=== PATIENT | female | born 1985 | race American Indian/Alaskan Native ===

== ENCOUNTER 2020-09-10 07:06 | Emergency (ER) | payer OTHER ==
[2020-09-10 07:25] VITALS: BP 108/66
[2020-09-10] MEDS ORDERED: DIPHtheria,PERTUSSIS(ACELL),TETANUS VACCINE/PF 0.5 ML VIAL IM ONE (07:56)
--- NOTE | 2020-09-10 08:00 | Emergency Department Report ---
ED Laceration HPI - HPI Chief Complaint: Laceration/Recheck/Suture Stated Complaint: RT THUMB LACERATION Time Seen by Provider: 09/10/20 07:55 Occurred When: Yesterday Location: Upper Extremity Tetanus Status: Not up to Date (Right thumb) Laceration Symptoms: Yes Pain, No Foreign Body Sensation, No Numbness, No Weakness Other History: The patient was evaluated in the emergency department for symptoms described in the history of present illness. He/she was evaluated in the context of the global COVID-19 pandemic, which necessitated consideration that the patient might be at risk for infection with the virus that causes COVID-19. Institutional protocols and algorithms that pertain to the evaluation of patients at risk for COVID-19 are in a state of rapid change based on information released by regulatory bodies including the CDC and federal and state organizations. These policies and algorithms were followed during the patient's care in the emergency department. Please note that these policies, procedures and recommendations changed on a rapid basis. 34-year-old - [place] female presents to the emergency room for cutting her thumb last night approximately 9:00 PM. Patient states that she cut it on a glass table. Patient reports that the bleeding was controlled until she pulled off the bandage this morning. Patient reports she is not up-to-date on her tetanus. ED Review of Systems ROS: Stated complaint: RT THUMB LACERATION Other details as noted in HPI Comment: All other systems reviewed and negative ED Past Medical Hx - Past Medical History Previous Medical History?: Yes Additional medical history: states that she was DX with depression, - Surgical History Past Surgical History?: Yes Additional Surgical History: , D and C X1 - Social History Smoking Status: Current Every Day Smoker Substance Use Type: None Laceration Physical Exam - Exam General: Vital signs noted. No distress. Alert and acting appropriately. Wound Length (cm): 1 Laceration Location: Upper Extremity (right thumb) Laceration Exam: Yes Normal Distal CMS, No Foreign Body, No Exposed Tendon, Vessel, or Nerve, No Tendon Injury ED Course Vital Signs 09/10/20 09/10/20 07:11 07:15 Temperature 98.4 F 98.4 F Pulse Rate 65 65 Respiratory 18 16 Rate Blood Pressure 108/66 Blood Pressure 108/65 [Right] O2 Sat by Pulse 98 98 Oximetry - Laceration /Wound Repair Right Finger Wound Location: upper extremity Wound's Depth, Shape: into muscle Wound Explored: no foreign body removed Irrigated w/ Saline (ccs): 150 Betadine Prep?: Yes Wound Repaired With: Steri-strips, Dermabond Sterile Dressing Applied?: Yes Progress: Tolerated well ED Medical Decision Making - Medical Decision Making 34-year-old -[place] female presents to the emergency room for cutting her thumb last night approximately 9:00 PM. Patient states that she cut it on a glass table. Patient reports that the bleeding was controlled until she pulled off the bandage this morning. Patient reports she is not up-to-date on her tetanus. Repair of laceration to the right thumb was used with Dermabond and Steri-Strips and a clean bandage was placed. Patient will receive a booster X tetanus shot. Patient is to keep the wound clean and dry do not pick the Steri-Strips and glue. Critical care attestation.: If time is entered above; I have spent that time in minutes in the direct care of this critically ill patient, excluding procedure time. ED Disposition Clinical Impression: Laceration of thumb Disposition: DC-01 TO HOME OR SELFCARE Is pt being admited?: No Does the pt Need Aspirin: No Condition: Stable Instructions: Sutures, Edson, or Adhesive Wound Closure Additional Instructions: Keep wound clean and dry. Do not pick Steri-Strips and glue it will fall off as the wound is healed. Referrals: [facility] [Provider Group] - 3-5 Days Forms: Work/School Release Form(ED)
== END 2020-09-10 08:16 | disposition home or self-care (01) ==
LOC: ED 07:06
DX: S61.011A Laceration without foreign body of right thumb without damage to nail, initial encounter (principal); W25.XXXA Contact with sharp glass, initial encounter; Y93.89 Activity, other specified; Y92.89 Other specified places as the place of occurrence of the external cause; Y99.8 Other external cause status
CPT/HCPCS: 90471; 90715; 99282

== ENCOUNTER 2021-04-22 16:28 | Emergency (ER) | payer OTHER | END 2021-04-22 16:32 | disposition left against medical advice (07) | LOC: ED 16:28 | DX: M25.512 Pain in left shoulder (principal); Z53.21 Procedure and treatment not carried out due to patient leaving prior to being seen by health care provider ==